=== PATIENT | female | born 1930 | race Caucasian/White ===

== ENCOUNTER → 2016-09-30 | Outpatient (CLI) | payer OTHER ==
[~2016-09-30] MED LIST: ACET-1757 PO; AMLO1CAP PO; AMLO5TAB2 PO; ASCO10007 PO; ASPI-650 PO; ASPI-770 PO; ATEN25TA PO; CA C1TAB35 PO; CALC-72 PO; CLON0.1T PO; DOXY100C2 PO; GEMF600T3 PO; HYDR-3138 PO; LISI-170 PO; LISI40TA PO; OMEP-110 PO; ONDA4TAB7 PO; SERT100T5 PO; SERT25TA3 PO; SOTA80TA18 PO; VALS1TAB15 PO; [UNRECOGNIZED DRUG - CODE] PO
== END | disposition home or self-care (01) ==
LOC: CFH 14:39
PROVIDERS: ATTEND Physician Assistant Medical
DX: T19.2XXA Foreign body in vulva and vagina, initial encounter (principal); K57.30 Diverticulosis of large intestine without perforation or abscess without bleeding; M85.80 Other specified disorders of bone density and structure, unspecified site; Z90.710 Acquired absence of both cervix and uterus; X58.XXXA Exposure to other specified factors, initial encounter; Y93.89 Activity, other specified; Y92.89 Other specified places as the place of occurrence of the external cause; Y99.8 Other external cause status
CPT/HCPCS: 72192

== ENCOUNTER 2017-01-18 10:36 | Inpatient (IN) | payer OTHER ==
[~2017-01-18] VITALS: Ht 149.9 cm; Wt 74.6 kg
[~2017-01-18 10:36] MED LIST changes: +ASCO100019 PO; -ASCO10007 PO; +CALC-534 PO; -CALC-72 PO; -HYDR-3138 PO; +HYDR-3237 PO
[2017-01-18] MEDS ORDERED: CALC667T PO (11:00)
[2017-01-18] MEDS ORDERED: SODIUM CHLORIDE FLUSH 10ML SYR IVF ONE (11:00)
[2017-01-18] MEDS ORDERED: ASPIRIN 81 MG TABLET CHEW PO ONE (11:00)
[2017-01-18] MEDS ORDERED: ASPI325T17 PO (11:00)
[2017-01-18] MEDS ORDERED: ASPIRIN 81 MG TABLET CHEW ONE (11:16)
[2017-01-18 11:54] LABS: HEMATOCRIT 37.8 % (34.6-47.8); HEMOGLOBIN 12.7 g/dL (11.7-16.4); WHITE BLOOD COUNT 6.3 x10^3/uL (3.4-10)
[2017-01-18 11:59] LABS: BLOOD UREA NITROGEN 18 mg/dL (7-18)
[2017-01-18 12:05] LABS: ASPARTATE AMINO TRANSFERASE 10 U/L (15-37); IS PT STATUS REG ER OR PRE ER? YES
[2017-01-18] MEDS ORDERED: OMNIPAQUE 350 MG/ML, 100ML BOTTLE ONE (13:24)
[2017-01-18] MEDS ORDERED: hydrALAzine 20 MG/ML, 1ML IVPush PRN (15:30)
[2017-01-18] MEDS ORDERED: ACETAMINOPHEN 325 MG TABLET PO PRN (15:30)
[2017-01-18] MEDS ORDERED: ONDANSETRON 2MG/ML, 2ML IVPush PRN (15:30)
[2017-01-18] MEDS ORDERED: DOCUSATE 100 MG CAPSULE PO PRN (15:30)
[2017-01-18] MEDS ORDERED: NITROGLYCERIN 0.4 MG BOTTLE (25 TABS) SL PRN (15:30)
[2017-01-18] MEDS ORDERED: HYDROcodone/APAP 5/325 TABLET PO PRN (15:30)
[2017-01-18] MEDS ORDERED: morphine SULFATE 10 MG/ML, 1ML IVPush PRN (15:30)
[2017-01-18] MEDS ORDERED: hydrALAzine 20 MG/ML, 1ML ONE (15:54)
[2017-01-18 16:57] VITALS: BP 167/70
[2017-01-18] MEDS ORDERED: ALBUTEROL/IPRATROPIUM 2.5MG/0.5MG, 3 ML NPPB PRN (17:00)
[2017-01-18] MEDS ORDERED: ENOXAPARIN 40 MG/0.4 ML SQ SCH (17:00)
[2017-01-18 18:04] LABS: IS PT STATUS REG ER OR PRE ER? NO
[2017-01-18 18:38] VITALS: BP 142/56
[2017-01-18] MEDS ORDERED: SERTRALINE 100MG TABLET PO SCH (21:00)
[2017-01-18 21:18] VITALS: BP 148/65
[2017-01-18] MEDS: AMLODIPINE 5 MG TABLET PO SCH (21:21)
[2017-01-18] MEDS: LISINOPRIL 20 MG TABLET PO SCH (21:22)
[2017-01-19 00:19] LABS: IS PT STATUS REG ER OR PRE ER? NO
[2017-01-19 01:57] VITALS: BP 145/54
[2017-01-19 05:51] LABS: HEMATOCRIT 37.1 % (34.6-47.8); HEMOGLOBIN 12.5 g/dL (11.7-16.4); WHITE BLOOD COUNT 7.1 x10^3/uL (3.4-10)
[2017-01-19 06:24] LABS: ASPARTATE AMINO TRANSFERASE 11 U/L (15-37); BLOOD UREA NITROGEN 18 mg/dL (7-18)
[2017-01-19 06:35] LABS: IS PT STATUS REG ER OR PRE ER? NO
[2017-01-19 08:00] VITALS: BP 164/69
[2017-01-19] MEDS: LISINOPRIL 20 MG TABLET PO SCH (08:05)
[2017-01-19] MEDS: AMLODIPINE 5 MG TABLET PO SCH (08:05)
[2017-01-19] MEDS ORDERED: GEMFIBROZIL 600 MG TABLET PO SCH (09:00)
[2017-01-19] MEDS ORDERED: ASPIRIN 325 MG TABLET PO SCH (09:00)
[2017-01-19] MEDS ORDERED: REGADENOSON 0.4 MG/5 ML SYRINGE ONE (11:36)
[2017-01-19] MEDS ORDERED: AMINOPHYLLINE 25 MG/ML, 10ML ONE (12:51)
[2017-01-19] MEDS ORDERED: ENOXAPARIN 30 MG/0.3 ML SQ SCH (18:00)
== END 2017-01-19 18:45 | disposition home or self-care (01) | DRG 392 ==
LOC: ED 11:52 → EDIP 13:49 → 5SO 16:49
PROVIDERS: ADMIT Internal Medicine; ATTEND Internal Medicine
DX: K21.9 Gastro-esophageal reflux disease without esophagitis (principal); I24.9 Acute ischemic heart disease, unspecified; E44.1 Mild protein-calorie malnutrition; I11.9 Hypertensive heart disease without heart failure; I48.0 Paroxysmal atrial fibrillation; J44.9 Chronic obstructive pulmonary disease, unspecified; I25.10 Atherosclerotic heart disease of native coronary artery without angina pectoris; I44.7 Left bundle-branch block, unspecified; E78.5 Hyperlipidemia, unspecified; M54.9 Dorsalgia, unspecified; G89.29 Other chronic pain; F41.9 Anxiety disorder, unspecified; G47.33 Obstructive sleep apnea (adult) (pediatric); Z96.653 Presence of artificial knee joint, bilateral; Z79.82 Long term (current) use of aspirin; Z82.49 Family history of ischemic heart disease and other diseases of the circulatory system; Z87.891 Personal history of nicotine dependence; Z80.9 Family history of malignant neoplasm, unspecified; Z95.0 Presence of cardiac pacemaker; Z90.49 Acquired absence of other specified parts of digestive tract; Z90.710 Acquired absence of both cervix and uterus; Z88.5 Allergy status to narcotic agent; Z88.1 Allergy status to other antibiotic agents; Z88.8 Allergy status to other drugs, medicaments and biological substances; Z68.33 Body mass index [BMI] 33.0-33.9, adult
CPT/HCPCS: 36415; 71010; 71275; 78452; 80053; 80061; 83735; 84100; 84439; 84443; 84484; 85025; 85379; 93005; 93017; 93306; 96374; J1650; J2785; Q9967; A9502; C9898; J0280; J0360

== ENCOUNTER 2017-10-23 15:50 | Inpatient (IN) | payer OTHER ==
[~2017-10-23] VITALS: Ht 149.9 cm; Wt 75.9 kg
[~2017-10-23 15:50] MED LIST changes: -ASPI-770 PO; +ASPI325T17 PO; +ASPI81TA59 PO; +CALC667T PO; +HYDR-3285 PO; -[UNRECOGNIZED DRUG - CODE] PO
[2017-10-23] MEDS ORDERED: NITROGLYCERIN 0.4 MG BOTTLE (25 TABS) SL PRN (17:30)
[2017-10-23] MEDS ORDERED: NITROGLYCERIN SINGLE TAB 0.4 MG SL ONE (17:32)
[2017-10-23 17:46] LABS: BASOPHILS # (AUTO) 0.02 x10^3/uL (0-0.1); BASOPHILS % (AUTO) 0 % (0-1); EOSINOPHILS # (AUTO) 0.08 x10^3/uL (0-0.4); EOSINOPHILS % (AUTO) 2 % (1-7); LYMPHOCYTES # (AUTO) 1.23 x10^3/uL (1-3.4); LYMPHOCYTES % (AUTO) 23 % (22-44); MD NO; MEAN CORPUSCULAR HEMOGLOBIN 31.9 pg (27.0-34.8); MEAN CORPUSCULAR HGB CONC 33.7 g/dL (32.4-35.8); MEAN CORPUSCULAR VOLUME 94.7 fL (80-100); MEAN PLATELET VOLUME 8.1 fL (7.4-10.4); MONOCYTES # (AUTO) 0.35 x10^3/uL (0.2-0.8); MONOCYTES % (AUTO) 7 % (2-9); NEUTROPHILS # (AUTO) 3.56 x10^3/uL (1.8-6.8); NEUTROPHILS % (AUTO) 68 % (42-75); PLATELET COUNT 175 x10^3/uL (130-400); RED BLOOD COUNT 4.05 x10^6/uL (3.82-5.3); RED CELL DISTRIBUTION WIDTH 13.4 % (9.6-15.2)
[2017-10-23 17:49] LABS: INTERNATIONAL NORMALIZED RATIO 0.98 (0.93-1.1); PROTHROMBIN TIME 10.2 Seconds (9.6-11.5)
[2017-10-23 17:52] LABS: ALANINE AMINOTRANSFERASE 16 U/L (12-78); ALBUMIN 3.5 g/dL (3.4-5.0); ANION GAP 7 mmol/L (5-15); CALCIUM 8.6 mg/dL (8.5-10.1); CHLORIDE 110 mmol/L (98-107); CREATININE 0.93 mg/dL (0.55-1.02)
[2017-10-23 17:57] LABS: ALKALINE PHOSPHATASE 81 U/L (45-117); BILIRUBIN,TOTAL 0.3 mg/dL (0.2-1.0); TOTAL PROTEIN 7.1 g/dL (6.4-8.2); TROPONIN I < 0.015 ng/mL (0.000-0.045)
[2017-10-23 18:08] LABS: MICROSCOPIC NOT IND
[2017-10-23 18:10] LABS: CULTURE INDICATED? NO
[2017-10-23] MEDS ORDERED: SODIUM CHLORIDE 0.9% 1,000 ML IV SCH (19:03)
[2017-10-23] MEDS ORDERED: HYDROcodone/APAP 5/325 TABLET PO PRN (19:30)
[2017-10-23] MEDS ORDERED: hydrALAzine 20 MG/ML, 1ML IVPush PRN (19:30)
[2017-10-23] MEDS ORDERED: ACETAMINOPHEN 325 MG TABLET PO PRN (19:30)
[2017-10-23] MEDS ORDERED: ONDANSETRON ODT 4 MG PO PRN (19:30)
[2017-10-23 19:40] VITALS: BP 195/70
[2017-10-23 19:50] VITALS: BP 195/70
[2017-10-23 20:02] VITALS: BP 157/73
[2017-10-23] MEDS: HEPARIN 5,000 UNITS/ML, 1ML SQ SCH (20:20)
[2017-10-23] MEDS: MELATONIN 5 MG TABLET PO SCH (20:20)
[2017-10-23] MEDS: LISINOPRIL 20 MG TABLET PO SCH (20:21)
[2017-10-23] MEDS: GEMFIBROZIL 600 MG TABLET PO SCH (20:21)
[2017-10-23] MEDS: SERTRALINE 100MG TABLET PO SCH (20:21)
[2017-10-23] MEDS: AMLODIPINE 5 MG TABLET PO SCH (20:21)
[2017-10-23 21:22] VITALS: BP 159/65
[2017-10-24] MEDS: HEPARIN 5,000 UNITS/ML, 1ML SQ SCH ×3 (02:46→21:29)
[2017-10-24 03:30] VITALS: BP 160/67
[2017-10-24 06:52] VITALS: BP 171/67
[2017-10-24] MEDS: GEMFIBROZIL 600 MG TABLET PO SCH ×2 (09:10→21:29)
[2017-10-24] MEDS: POLYETHYLENE GLYCOL 17 GM PACKET PO SCH ×2 (09:10→09:12)
[2017-10-24] MEDS: OMEPRAZOLE 20 MG CAPSULE.DR PO SCH (09:10)
[2017-10-24] MEDS: ASPIRIN 325 MG TABLET PO SCH (09:10)
[2017-10-24] MEDS: AMLODIPINE 5 MG TABLET PO SCH ×2 (09:11→21:29)
[2017-10-24] MEDS: CALCIUM ACETATE 667 MG CAPSULE PO SCH (09:11)
[2017-10-24] MEDS: LISINOPRIL 20 MG TABLET PO SCH ×2 (09:11→21:29)
[2017-10-24] MEDS ORDERED: LORazepam 2 MG/ML, 1ML ONE (09:54)
[2017-10-24 09:58] VITALS: BP 148/83
[2017-10-24] MEDS ORDERED: MAALOX/HYOSCYAMINE/LIDOCAINE 45 ML BTL PO ONE (10:00)
[2017-10-24] MEDS ORDERED: LORazepam 0.5MG TABLET PO PRN (10:00)
[2017-10-24] MEDS ORDERED: LORazepam 2 MG/ML, 1ML IVPush ONE (10:00)
[2017-10-24] MEDS ORDERED: OMNIPAQUE 350 MG/ML, 100ML BOTTLE ONE (11:43)
[2017-10-24 13:51] VITALS: BP 153/70
[2017-10-24 21:27] VITALS: BP 156/71
[2017-10-24] MEDS: MELATONIN 5 MG TABLET PO SCH (21:29)
[2017-10-24] MEDS: SERTRALINE 100MG TABLET PO SCH (21:29)
[2017-10-25 02:40] VITALS: BP 144/74
[2017-10-25] MEDS: HEPARIN 5,000 UNITS/ML, 1ML SQ SCH ×3 (05:48→22:03)
[2017-10-25 06:43] VITALS: BP 148/68
[2017-10-25] MEDS: OMEPRAZOLE 20 MG CAPSULE.DR PO SCH (08:39)
[2017-10-25] MEDS: ASPIRIN 325 MG TABLET PO SCH (08:39)
[2017-10-25] MEDS: LISINOPRIL 20 MG TABLET PO SCH ×2 (08:39→21:09)
[2017-10-25] MEDS: CALCIUM ACETATE 667 MG CAPSULE PO SCH (08:39)
[2017-10-25] MEDS: AMLODIPINE 5 MG TABLET PO SCH ×2 (08:39→21:09)
[2017-10-25] MEDS: POLYETHYLENE GLYCOL 17 GM PACKET PO SCH (08:39)
[2017-10-25] MEDS: GEMFIBROZIL 600 MG TABLET PO SCH ×2 (08:39→21:09)
[2017-10-25] MEDS: METOPROLOL SUCCINATE 25 MG TAB.ER.24H PO SCH (10:11)
[2017-10-25 12:43] VITALS: BP 168/68
[2017-10-25 18:39] VITALS: BP 139/55
[2017-10-25 21:00] VITALS: BP 128/65
[2017-10-25] MEDS: MELATONIN 5 MG TABLET PO SCH (21:09)
[2017-10-25] MEDS: SERTRALINE 100MG TABLET PO SCH (21:09)
[2017-10-26 00:44] VITALS: BP 138/51
[2017-10-26 05:24] VITALS: BP 146/62
[2017-10-26] MEDS: METOPROLOL SUCCINATE 25 MG TAB.ER.24H PO SCH (05:27)
[2017-10-26] MEDS: HEPARIN 5,000 UNITS/ML, 1ML SQ SCH ×2 (05:27→13:30)
[2017-10-26 07:02] VITALS: BP 161/72
[2017-10-26] MEDS: POLYETHYLENE GLYCOL 17 GM PACKET PO SCH (09:00)
[2017-10-26] MEDS: OMEPRAZOLE 20 MG CAPSULE.DR PO SCH (09:24)
[2017-10-26] MEDS: ASPIRIN 325 MG TABLET PO SCH (09:24)
[2017-10-26] MEDS: AMLODIPINE 5 MG TABLET PO SCH (09:24)
[2017-10-26] MEDS: LISINOPRIL 20 MG TABLET PO SCH (09:24)
[2017-10-26] MEDS: CALCIUM ACETATE 667 MG CAPSULE PO SCH (09:24)
[2017-10-26] MEDS: GEMFIBROZIL 600 MG TABLET PO SCH (09:24)
[2017-10-26 13:00] VITALS: BP 158/62
[2017-10-26] MEDS ORDERED: METO25TA91 PO (13:27)
== END 2017-10-26 14:35 | disposition home health service (06) | DRG 308 ==
LOC: ED 17:22 → EDIP 18:36 → 5SO 19:23 → DCLOUNGE 10-26 14:08
PROVIDERS: ADMIT Hospitalist; ATTEND Hospitalist
PROC: 4B02XSZ Measurement of Cardiac Pacemaker, External Approach (ICD-10-PCS; principal; 2017-10-25)
DX: I47.2 Ventricular tachycardia (principal); I50.33 Acute on chronic diastolic (congestive) heart failure; J96.10 Chronic respiratory failure, unspecified whether with hypoxia or hypercapnia; D68.69 Other thrombophilia; I42.2 Other hypertrophic cardiomyopathy; I11.0 Hypertensive heart disease with heart failure; Z99.81 Dependence on supplemental oxygen; I47.1 Supraventricular tachycardia; I48.0 Paroxysmal atrial fibrillation; J44.9 Chronic obstructive pulmonary disease, unspecified; I25.10 Atherosclerotic heart disease of native coronary artery without angina pectoris; I44.7 Left bundle-branch block, unspecified; Z88.6 Allergy status to analgesic agent; Z88.8 Allergy status to other drugs, medicaments and biological substances; E78.5 Hyperlipidemia, unspecified; F41.9 Anxiety disorder, unspecified; G47.33 Obstructive sleep apnea (adult) (pediatric); I25.2 Old myocardial infarction; K21.9 Gastro-esophageal reflux disease without esophagitis; Z66 Do not resuscitate; Z87.891 Personal history of nicotine dependence; Z90.710 Acquired absence of both cervix and uterus; Z96.653 Presence of artificial knee joint, bilateral
CPT/HCPCS: 36415; 71045; 71275; 80053; 81003; 83880; 84443; 84484; 85025; 85379; 85610; 85730; 93005; 93306; 99285; J1644; Q0162; Q9967; J2060; J7030

== ENCOUNTER 2017-10-28 15:42 | Emergency (ER) | payer MEDICAID, OTHER ==
[~2017-10-28] VITALS: Ht 149.9 cm; Wt 78.0 kg
[~2017-10-28 15:42] MED LIST changes: +METO25TA91 PO
[2017-10-28 16:12] VITALS: BP 129/62
== END 2017-10-28 18:49 | disposition home or self-care (01) ==
LOC: ED 18:31
DX: R55 Syncope and collapse (principal); I11.0 Hypertensive heart disease with heart failure; I50.9 Heart failure, unspecified; Z88.0 Allergy status to penicillin; Z87.891 Personal history of nicotine dependence; Z95.0 Presence of cardiac pacemaker; Z88.5 Allergy status to narcotic agent
CPT/HCPCS: 93005; 99283

== ENCOUNTER 2018-02-16 00:49 | Inpatient (IN) | payer OTHER ==
[~2018-02-16] VITALS: Ht 149.9 cm; Wt 71.0 kg
[~2018-02-16 00:49] MED LIST changes: -AMLO5TAB2 PO; +AMLO5TAB7 PO; -GEMF600T3 PO; +GEMF600T4 PO
[2018-02-16 02:42] LABS: CULTURE INDICATED? YES; MICROSCOPIC INDICATED
[2018-02-16 02:53] LABS: BASOPHILS # (AUTO) 0.04 x10^3/uL (0-0.1); BASOPHILS % (AUTO) 1 % (0-1); EOSINOPHILS # (AUTO) 0.29 x10^3/uL (0-0.4); EOSINOPHILS % (AUTO) 5 % (1-7); LYMPHOCYTES # (AUTO) 1.56 x10^3/uL (1-3.4); LYMPHOCYTES % (AUTO) 27 % (22-44); MD NO; MEAN CORPUSCULAR HEMOGLOBIN 32.5 pg (27.0-34.8); MEAN CORPUSCULAR HGB CONC 34.9 g/dL (32.4-35.8); MEAN CORPUSCULAR VOLUME 93.3 fL (80-100); MONOCYTES # (AUTO) 0.39 x10^3/uL (0.2-0.8); MONOCYTES % (AUTO) 7 % (2-9); NEUTROPHILS # (AUTO) 3.43 x10^3/uL (1.8-6.8); NEUTROPHILS % (AUTO) 60 % (42-75); PLATELET COUNT 187 x10^3/uL (130-400); RED CELL DISTRIBUTION WIDTH 13.3 % (9.6-15.2)
[2018-02-16 03:01] LABS: ALANINE AMINOTRANSFERASE 10 U/L (12-78); ALBUMIN 3.6 g/dL (3.4-5.0); ANION GAP 6 mmol/L (5-15); CALCIUM 8.9 mg/dL (8.5-10.1); CHLORIDE 109 mmol/L (98-107); CREATININE 0.92 mg/dL (0.55-1.02)
[2018-02-16 03:06] LABS: ALKALINE PHOSPHATASE 95 U/L (45-117); BILIRUBIN,TOTAL 0.3 mg/dL (0.2-1.0); TOTAL PROTEIN 7.5 g/dL (6.4-8.2); TROPONIN I < 0.015 ng/mL (0.000-0.045)
[2018-02-16] MEDS ORDERED: ASPIRIN 81 MG TABLET CHEW PO ONE (04:00)
[2018-02-16] MEDS ORDERED: hydrALAzine 20 MG/ML, 1ML IV ONE (04:00)
[2018-02-16] MEDS ORDERED: hydrALAzine 20 MG/ML, 1ML ONE (04:01)
[2018-02-16] MEDS ORDERED: ASPIRIN 81 MG TABLET CHEW ONE (04:02)
[2018-02-16] MEDS ORDERED: NS + 20MEQ KCL 1,000 ML IV SCH (05:37)
[2018-02-16] MEDS ORDERED: GUAIFENESIN/COD200MG-20MG/10ML LIQUID PO PRN (06:00)
[2018-02-16] MEDS ORDERED: ONDANSETRON 2MG/ML, 2ML IVPush PRN (06:00)
[2018-02-16] MEDS ORDERED: POLYETHYLENE GLYCOL 17 GM PACKET PO PRN (06:00)
[2018-02-16] MEDS ORDERED: ENALAPRILAT 1.25 MG/ML, 2ML IV PRN (06:00)
[2018-02-16] MEDS ORDERED: ACETAMINOPHEN 325 MG TABLET PO PRN (06:00)
[2018-02-16] MEDS ORDERED: DOCUSATE 100 MG CAPSULE PO PRN (06:00)
[2018-02-16] MEDS ORDERED: LABETALOL 5MG/ML, 20ML IVPush PRN (06:00)
[2018-02-16] MEDS ORDERED: hydrALAzine 20 MG/ML, 1ML IV PRN (06:00)
[2018-02-16] MEDS ORDERED: MORPHINE SULFATE 4 MG/ML, 1ML IVPush PRN (06:00)
[2018-02-16] MEDS ORDERED: METOPROLOL TARTRATE 25 MG TABLET ONE ×2 (06:06→11:20)
[2018-02-16] MEDS ORDERED: ENOXAPARIN 40 MG/0.4 ML ONE (06:06)
[2018-02-16] MEDS ORDERED: NS + 20MEQ KCL 1,000 ML IV ONE (06:07)
[2018-02-16] MEDS: ENOXAPARIN 40 MG/0.4 ML SQ SCH (07:58)
[2018-02-16] MEDS: METOPROLOL TARTRATE 25 MG TABLET PO SCH ×2 (08:00→18:18)
[2018-02-16 08:22] LABS: TROPONIN I < 0.015 ng/mL (0.000-0.045)
[2018-02-16] MEDS ORDERED: ASPIRIN 325 MG TABLET PO SCH (09:00)
[2018-02-16] MEDS ORDERED: ASPIRIN 325 MG TABLET EC ONE (11:19)
[2018-02-16] MEDS ORDERED: SENNA/DOCUSATE TABLET ONE (11:19)
[2018-02-16] MEDS ORDERED: FAMOTIDINE 20 MG TABLET ONE (11:19)
[2018-02-16] MEDS ORDERED: LISINOPRIL 20 MG TABLET ONE (11:19)
[2018-02-16] MEDS ORDERED: SERTRALINE 50MG TABLET ONE (11:20)
[2018-02-16] MEDS ORDERED: ASPIRIN 325 MG TABLET ONE (11:23)
[2018-02-16] MEDS: LISINOPRIL 20 MG TABLET PO SCH ×2 (11:29→19:59)
[2018-02-16] MEDS: FAMOTIDINE 20 MG TABLET PO SCH ×2 (11:29→19:58)
[2018-02-16] MEDS: CALCIUM ACETATE 667 MG CAPSULE PO SCH (11:30)
[2018-02-16] MEDS: GEMFIBROZIL 600 MG TABLET PO SCH ×2 (11:30→19:58)
[2018-02-16] MEDS: SENNA/DOCUSATE TABLET PO SCH (11:30)
[2018-02-16] MEDS: AMLODIPINE 5 MG TABLET PO SCH ×2 (12:26→19:58)
[2018-02-16 12:53] VITALS: BP 167/75
[2018-02-16] MEDS ORDERED: ASPI-621 PO (13:00)
[2018-02-16] MEDS: HYDROcodone/APAP 5/325 TABLET PO PRN ×2 (13:57→21:07)
[2018-02-16 16:59] LABS: TROPONIN I < 0.015 ng/mL (0.000-0.045)
[2018-02-16 18:17] VITALS: BP 180/69
[2018-02-16] MEDS: PINK LADY ENEMA 490 ML BOTTLE PR PRN (18:18)
[2018-02-16] MEDS: SERTRALINE 100MG TABLET PO SCH (19:58)
[2018-02-16 20:00] VITALS: BP 155/74
[2018-02-17] MEDS ORDERED: DIPHENHYDRAMINE 25 MG CAPSULE ONE (00:05)
[2018-02-17] MEDS ORDERED: DIPHENHYDRAMINE 25 MG CAPSULE PO ONE ×2 (00:30→21:00)
[2018-02-17 02:00] VITALS: BP 154/71
[2018-02-17] MEDS: ASPIRIN 81 MG TABLET EC PO SCH (05:32)
[2018-02-17] MEDS: METOPROLOL TARTRATE 25 MG TABLET PO SCH ×3 (05:32→18:15)
[2018-02-17] MEDS: ENOXAPARIN 40 MG/0.4 ML SQ SCH (05:32)
[2018-02-17 05:51] LABS: ANION GAP 9 mmol/L (5-15); CALCIUM 8.6 mg/dL (8.5-10.1); CHLORIDE 107 mmol/L (98-107); CHOLESTEROL, TOTAL 166 mg/dL (140-239); CREATININE 0.74 mg/dL (0.55-1.02)
[2018-02-17 05:54] LABS: CHOL/HDL RATIO 3.3; HDL CHOL % 31 % (28-40); HDL CHOLESTEROL (DIRECT) 51 mg/dL (40-60); LDL CHOLESTEROL,CALCULATED 97 mg/dL (54-169); LDL/HDL RATIO 1.9 (0.5-3.0); TRIGLYCERIDES 89 mg/dL (50-200); VLDL CHOLESTEROL 18 mg/dL (0-25)
[2018-02-17 07:27] VITALS: BP 168/68
[2018-02-17] MEDS: OMEPRAZOLE 20 MG CAPSULE.DR PO SCH (08:30)
[2018-02-17] MEDS: CALCIUM ACETATE 667 MG CAPSULE PO SCH (08:32)
[2018-02-17] MEDS: GEMFIBROZIL 600 MG TABLET PO SCH ×2 (08:32→20:33)
[2018-02-17] MEDS: AMLODIPINE 5 MG TABLET PO SCH ×2 (08:32→20:33)
[2018-02-17] MEDS: FAMOTIDINE 20 MG TABLET PO SCH ×2 (08:32→20:33)
[2018-02-17] MEDS: LISINOPRIL 20 MG TABLET PO SCH ×2 (08:32→20:34)
[2018-02-17] MEDS: SENNA/DOCUSATE TABLET PO SCH (08:34)
[2018-02-17 12:53] VITALS: BP 124/74
[2018-02-17 18:57] VITALS: BP 151/88
[2018-02-17] MEDS: SERTRALINE 100MG TABLET PO SCH (20:33)
[2018-02-18 00:01] VITALS: BP 158/53
[2018-02-18] MEDS: METOPROLOL TARTRATE 25 MG TABLET PO SCH (05:41)
[2018-02-18] MEDS: ASPIRIN 81 MG TABLET EC PO SCH (05:42)
[2018-02-18] MEDS ORDERED: ENOXAPARIN 30 MG/0.3 ML SQ SCH (06:00)
[2018-02-18 06:51] VITALS: BP 152/72
[2018-02-18 08:00] VITALS: BP 150/57
[2018-02-18 08:05] VITALS: BP 133/73
[2018-02-18 08:10] VITALS: BP 132/78
[2018-02-18] MEDS: LISINOPRIL 20 MG TABLET PO SCH (08:49)
[2018-02-18] MEDS: FAMOTIDINE 20 MG TABLET PO SCH (08:49)
[2018-02-18] MEDS: AMLODIPINE 5 MG TABLET PO SCH (08:50)
[2018-02-18] MEDS: OMEPRAZOLE 20 MG CAPSULE.DR PO SCH (08:50)
[2018-02-18] MEDS: CALCIUM ACETATE 667 MG CAPSULE PO SCH (08:50)
[2018-02-18] MEDS: SENNA/DOCUSATE TABLET PO SCH (08:50)
[2018-02-18] MEDS: GEMFIBROZIL 600 MG TABLET PO SCH (08:50)
[2018-02-18] MEDS: PINK LADY ENEMA 490 ML BOTTLE PR PRN (10:00)
[2018-02-18 13:15] VITALS: BP 143/64
[2018-02-18] MEDS ORDERED: METO25TA35 PO (14:31)
== END 2018-02-18 16:02 | disposition home health service (06) | DRG 74 ==
LOC: ED 02:01 → EDIP 03:44 → 5SO 12:30
PROVIDERS: ADMIT Family Medicine; ATTEND Family Medicine
PROC: 4B02XSZ Measurement of Cardiac Pacemaker, External Approach (ICD-10-PCS; principal; 2018-02-17)
DX: G90.9 Disorder of the autonomic nervous system, unspecified (principal); D68.69 Other thrombophilia; I42.2 Other hypertrophic cardiomyopathy; J96.10 Chronic respiratory failure, unspecified whether with hypoxia or hypercapnia; I44.7 Left bundle-branch block, unspecified; E78.5 Hyperlipidemia, unspecified; F41.9 Anxiety disorder, unspecified; G47.33 Obstructive sleep apnea (adult) (pediatric); I05.0 Rheumatic mitral stenosis; I11.0 Hypertensive heart disease with heart failure; I25.10 Atherosclerotic heart disease of native coronary artery without angina pectoris; I25.2 Old myocardial infarction; I37.1 Nonrheumatic pulmonary valve insufficiency; I48.91 Unspecified atrial fibrillation; I50.9 Heart failure, unspecified; J44.9 Chronic obstructive pulmonary disease, unspecified; K21.9 Gastro-esophageal reflux disease without esophagitis; Z66 Do not resuscitate; Z87.891 Personal history of nicotine dependence; Z90.710 Acquired absence of both cervix and uterus; Z95.0 Presence of cardiac pacemaker; Z96.653 Presence of artificial knee joint, bilateral; Z99.81 Dependence on supplemental oxygen; R07.89 Other chest pain; Z88.6 Allergy status to analgesic agent; Z88.8 Allergy status to other drugs, medicaments and biological substances; Z90.49 Acquired absence of other specified parts of digestive tract
CPT/HCPCS: 36415; 71045; 80048; 80053; 80061; 81001; 83735; 84443; 84484; 85025; 87086; 93005; 93306; 93880; 96372; 96374; 96375; 99285; G0378; J1650; J3480; J0360; Q0163